=== PATIENT | male | born 1995 | race Caucasian/White ===

== ENCOUNTER 2017-07-30 05:00 | Emergency (ER) | payer SELFPAY ==
[2017-07-30] MEDS ORDERED: IBUPROFEN 400 MG TABLET PO ONE (05:16)
--- NOTE | 2017-07-30 05:22 | Emergency Department Record ---
History of Present Illness - General Chief complaint: Lower Extremity Pain Stated complaint: LEFT LEG PAIN Time Seen by Provider: 07/30/17 05:16 Source: Patient Mode of Arrival: Ambulatory Limitations: No limitations - History of Present Illness Initial comments: 21 yo male presents to ED for evaluation of pain to the back of the left knee that began yesterday afternoon while at work (walking). Patient denies specific injury or trauma, denies knee swelling or history of DVT. Patient denies redness, fever, or recent surgery to the left leg. Patient reports that the pain ferom the back of his knee radiates proximally. MD Complaint: Joint pain Onset/Timin -: Hour(s) Location: Left, Knee Severity scale (1-10): 10 Quality: Stabbing Consistency: Getting worse Worsens with: Exertion, Walking, Weight bearing - Related Data Allergies Allergy/AdvReac Type Severity Reaction Status Date / Time Penicillins Allergy RASH Verified 05/15/15 17:45 Travel Screening - Travel/Exposure Within Last 30 Days Have you traveled within the last 30 days?: No Review of Systems Constitutional: Denies: Chills, Fever, Malaise, Night sweats Eyes: Denies: Eye discharge, Eye pain ENT: Denies: Congestion, Ear pain, Epistaxis Respiratory: Denies: Cough, Dyspnea Cardiovascular: Denies: Chest pain, Dyspnea on exertion Endocrine: Denies: Fatigue, Heat or cold intolerance Gastrointestinal: Denies: Abdominal pain, Nausea, Vomiting Genitourinary: Denies: Incontinence, Retention Musculoskeletal: Reports: Arthralgia. Denies: Back pain, Gout, Joint swelling Skin: Denies: Bruising, Change in color, Change in hair/nails Neurological: Denies: Abnormal gait, Confusion, Headache, Seizure Psychiatric: Denies: Anxiety Hematological/Lymphatic: Denies: Anemia, Blood Clots Past Medical History - SOCIAL HISTORY Smoking Status: Current every day smoker Alcohol Use: None Drug Use: None - RESPIRATORY Hx Respiratory Disorders: No - CARDIOVASCULAR Hx Cardio Disorders: No - NEURO Hx Neuro Disorders: No - GI Hx GI Disorders: No - Hx Genitourinary Disorders: No - ENDOCRINE Hx Endocrine Disorders: No - MUSCULOSKELETAL Hx Musculoskeletal Disorders: No - PSYCH Hx Anxiety: Yes (adhd) Hx Behavior Problems: No Hx Depression: No Hx Emotional Abuse: No Hx Sexual Abuse: No Hx Suicide Attempt: No - HEMATOLOGY/ONCOLOGY Hx Hematology/Oncology Disorders: No Family Medical History Any Significant Family History?: No Physical Exam - General General Appearance: Alert, Oriented x3, Cooperative, Mild distress Limitations: No limitations - Head Head exam: Atraumatic, Normocephalic, Normal inspection Head exam detail: negative: Abrasion, Contusion, Diego's sign, General tenderness, Hematoma, Laceration - Eye Eye exam: Normal appearance. negative: Conjunctival injection, Periorbital swelling, Periorbital tenderness, Scleral icterus - ENT Ear exam: negative: Auricular hematoma, Auricular trauma Nasal Exam: negative: Active bleeding, Discharge, Dried blood, Foreign body Mouth exam: negative: Drooling, Laceration, Muffled voice, Tongue elevation - Neck Neck exam: Normal inspection. negative: Meningismus, Tenderness - Respiratory Respiratory exam: Normal lung sounds bilaterally. negative: Rales, Respiratory distress, Rhonchi, Stridor - Cardiovascular Cardiovascular Exam: Regular rate, Normal rhythm, Normal heart sounds Peripheral Pulses: 3+: Dorsalis Pedis (L) - GI/Abdominal GI/Abdominal exam: Soft. negative: Rebound, Rigid, Tenderness - Rectal Rectal exam: Deferred - exam: Deferred - Extremities Extremities exam: Tenderness, Other (TTP to the popliteal sarbjit of the LLE, no knee joint effusion or erythema, no clicking/popping on examination with flexion /extension, there is mild pain with passive ROM of the knee. Strong distal DPP , compartments of the lower extremity are soft on examination.). negative: Calf tenderness, Pedal edema - Back Back exam: Denies: CVA tenderness (R), CVA tenderness (L) - Neurological Neurological exam: Alert, Oriented X3. negative: Motor sensory deficit - Psychiatric Psychiatric exam: Normal affect, Normal mood - Skin Skin exam: Normal color. negative: Abrasion Type of lesion: negative: abrasion Course Vital Signs 07/30/17 05:11 Temperature 98.5 F Pulse Rate [ 72 Pulse Ox Probe] Respiratory 18 Rate Blood Pressure 117/68 [Left Arm] Pulse Ox 97 - Reevaluation(s) Reevaluation #1: 07/30/17 05:22 Patient was seen and examined, reports pain with palpation to the left popliteal region. No evidence for septic joint on examination, compartments are soft on exam. Strong distal DPP No evidence for joint or bony injury on examination, and radiographs appear unlikely to be of benefit. Will obtain D-Dimer to exclude DVT, however symptoms appear c/w popliteal bursitis on examination. Reevaluation #2: 07/30/17 05:40 D-Dimer is negative for DVT. Symptoms appear c/w bursitis, will treat with Motrin and Ice as directed. Patient appears stable for discharge at this time. Disposition Disposition: Discharge Clinical Impression: Popliteal bursitis of left knee Disposition: Home, Self-Care Condition: (2) Stable Instructions: Knee Bursitis (ED) Additional Instructions: Return to ED if your symptoms worsen or if you have any concerns. Ibuprofen/Ice as directed. Follow-up with your family doctor in 3-5 days as directed. Forms: Patient Portal Access Time of Disposition: 05:42 Quality - Quality Measures Quality Measures: N/A - Blood Pressure Screening Does Patient Have Any of the Following: No Blood Pressure Classification: Normal BP Reading Systolic Measurement: 117 Diastolic Measurement: 68 Screening for High Blood Pressure: < Normal BP, F/U Not Required > [G8783]
== END 2017-07-30 05:52 | disposition home or self-care (01) ==
LOC: ER 05:00
DX: M70.52 Other bursitis of knee, left knee (principal); F17.210 Nicotine dependence, cigarettes, uncomplicated
CPT/HCPCS: 85379; 99283

== ENCOUNTER 2018-09-29 20:11 | Emergency (ER) | payer SELFPAY ==
[2018-09-29] MEDS ORDERED: IBUPROFEN 400 MG TABLET PO ONE (20:18)
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
== END 2018-09-29 22:19 | disposition home or self-care (01) ==
LOC: ER 20:11
DX: S00.93XA Contusion of unspecified part of head, initial encounter (principal); S20.229A Contusion of unspecified back wall of thorax, initial encounter; S30.0XXA Contusion of lower back and pelvis, initial encounter; G89.11 Acute pain due to trauma; R51 Headache; M54.2 Cervicalgia; M54.5 Low back pain; M54.6 Pain in thoracic spine; F17.210 Nicotine dependence, cigarettes, uncomplicated; V63.5XXA Driver of heavy transport vehicle injured in collision with car, pick-up truck or van in traffic accident, initial encounter
CPT/HCPCS: 70450; 72125; 72128; 72131; 99284